=== PATIENT | female | born 1990 | race Caucasian/White ===

== ENCOUNTER 2017-03-05 13:53 | Inpatient (IN) | payer OTHER ==
[2017-03-05] MEDS: Lactated Ringer's 1,000 ML IV SCH ×2 (14:25→16:40)
[2017-03-05] MEDS ORDERED: Ondansetron HCl/PF 4 MG/2 ML Vial IVP PRN ×2 (15:03→17:20)
[2017-03-05] MEDS ORDERED: Carboprost 250 MCG/ML AMP IM PRN (15:03)
[2017-03-05] MEDS ORDERED: Lidocaine 1% (PF) 30 ML VIAL SC PRN (15:03)
[2017-03-05] MEDS ORDERED: Ibuprofen 800 MG TAB PO PRN (15:03)
[2017-03-05] MEDS ORDERED: Diphenoxylate HCl/Atropine Tablet PO PRN (15:03)
[2017-03-05] MEDS ORDERED: Acetaminophen 500 MG TAB PO PRN (15:03)
[2017-03-05] MEDS ORDERED: Promethazine HCl 25 MG/ML VIAL IM PRN ×2 (15:03→17:20)
[2017-03-05] MEDS ORDERED: Misoprostol 200 MCG TAB PR PRN (15:03)
[2017-03-05] MEDS ORDERED: HYDROcodone/Acetaminophen 5/325 mg Tablet PO PRN (15:03)
[2017-03-05 15:10] VITALS: BMI 29.6
[2017-03-05 15:18] LABS: Hematocrit 40.8 % (36.0-47.0); Mean Platelet Volume 11.7 fL (7.4-10.4); Red Blood Cell (RBC) Count 5.58 mill/uL (4.20-5.40); White Blood Cell (WBC) Count 7.1 thou/uL (4.8-10.8)
[2017-03-05] MEDS ORDERED: Fentanyl 4 mcg/Marc 0.1% Cadd 100 ML ONE (16:18)
[2017-03-05] MEDS ORDERED: Eucerin (Mineral Oil/Petrolatum,White) 30 gm Jar TOP PRN (17:20)
[2017-03-05] MEDS ORDERED: diphenhydrAMINE 50 MG/ML VIAL IVP PRN (17:20)
[2017-03-05] MEDS ORDERED: Lactated Ringer's 500 ML IV PRN (17:20)
[2017-03-05] MEDS ORDERED: ePHEDrine/0.9% NaCl/PF SYRINGE 50 mg/10 ml SLOW IVP PRN (17:20)
[2017-03-05] MEDS ORDERED: Naloxone HCl 0.4 mg/ml Vial IVP PRN ×2 (17:20)
[2017-03-05] MEDS ORDERED: Acetaminophen 325 MG TAB PO PRN (17:20)
[2017-03-05] MEDS ORDERED: Fentanyl 4mcg/Marcaine 0.1% Cassette 100 ML EPIDURAL SCH (17:30)
[2017-03-05] MEDS ORDERED: Communication Order-Pharmacy FS SCH (17:30)
[2017-03-05] MEDS: LR / Pitocin 40 units/1000 ml 1,000 ML IV PRN (22:32)
--- NOTE | 2017-03-05 23:04 | PDOC.LDHP ---
Labor and Delivery H&P Chief complaint: contractions HPI: 26yo at 38w2d with painful contractions, no LOF or VB. Good FM Current gestational age (weeks): 38 Due date: 03/17/17 Dating criteria: last menstrual period Grav: 1 Para: 0 Current complications: none Abnormal US findings: No Past Medical History: denies Current medications: pre- vitamins Previous surgical history: none Allergies/Adverse Reactions: Allergies Allergy/AdvReac Type Severity Reaction Status Date / Time No Known Allergies Allergy Verified 03/05/17 15:12 Social history: none - Physical Exam Vital signs reviewed and normal: yes General: NAD Heart: RRR Lungs: CTAB Abdomen: gravid Extremeties: no edema FHT: category 1 [place] contractions every: q2min - Vaginal Exam cm dilated: 10 Effacement: 100% Station: 2+ - OB Labs Blood type: O RH: positive Antibody Screen: negative HIV: negative RPR: negative HEPSAg: negative 1 hour GCT: positive 3 hour GTT: negative GBS: negative Rubella: immune - Assessment L&D Assessment: term patient in labor - Plan Plan: admit to L&D, labor augmentation if indicated, informed consent obtained, anesthesia consult for pain management
--- NOTE | 2017-03-05 23:05 | PDOC.OPDEL ---
OB Operative/Delivery Note Delivery Dr/Surgeon: Dion Assist: n/a Pre-Delivery Diagnosis: active labor Procedure/Post Delivery Dx: spontaneous vaginal delivery Weeks gestation: 38 Anesthesia: epidural - Findings A Sex: female Weight: 6 lb 6 oz - 1 min: 9 - 5 min: 9 - Additional Findings/Plan Placenta delivered: spontaneous Repaired Obstetrical Laceration: 2nd degree (repaired with 2-0 vicryl, hemostasis noted) Estimated blood loss: 500 Post delivery plan: routine recovery
[2017-03-06] MEDS: LR / Pitocin 40 units/1000 ml 1,000 ML IV PRN (01:06)
[2017-03-06] MEDS ORDERED: Preparation H Ointment 28 GM TUBE PR PRN (02:40)
[2017-03-06] MEDS ORDERED: Benzocaine/Menthol 20-0.5% 60 ML CAN TOP PRN (02:40)
[2017-03-06] MEDS ORDERED: Bisacodyl 10 MG SUPP PR PRN (02:40)
[2017-03-06] MEDS ORDERED: LR / Pitocin 40 units/1000 ml 1,000 ML IV SCH (02:40)
[2017-03-06] MEDS ORDERED: HYDROcodone/Acetaminophen 5/325 mg Tablet PO PRN ×2 (02:40)
[2017-03-06] MEDS ORDERED: diphenhydrAMINE 25 MG CAP PO PRN (02:40)
[2017-03-06] MEDS ORDERED: Ondansetron HCl/PF 4 MG/2 ML Vial IVP PRN (02:40)
[2017-03-06] MEDS ORDERED: Lanolin Ointment 7 GM TUBE TOP PRN (02:40)
[2017-03-06] MEDS ORDERED: Milk Of Magnesia 30 ML UDCUP PO PRN (02:40)
[2017-03-06] MEDS ORDERED: Adacel (T-DAP) 0.5 ML VIAL IM ONE (03:00)
[2017-03-06] MEDS: Ibuprofen 800 MG TAB PO SCH ×3 (05:41→21:30)
[2017-03-06 05:55] LABS: Hematocrit 32.4 % (36.0-47.0); Mean Platelet Volume 10.1 fL (7.4-10.4); Red Blood Cell (RBC) Count 4.49 mill/uL (4.20-5.40); White Blood Cell (WBC) Count 13.3 thou/uL (4.8-10.8)
[2017-03-06] MEDS ORDERED: Docusate (Surfak) 240 MG CAP PO SCH (09:00)
[2017-03-06] MEDS: Ferrous Sulfate 325 MG TAB PO SCH ×2 (09:27→18:25)
[2017-03-06] MEDS: Prenatal Vitamin 1 TAB PO SCH (09:29)
--- NOTE | 2017-03-06 16:23 | PDOC.PP ---
Post Progress Note Post Day #: 1 PO intake tolerated: yes Flatus: yes Ambulation: yes Vital Signs (12 hours) Temp Pulse Resp BP 03/06/17 12:00 98.4 F 83 18 122/60 03/06/17 08:00 99.5 F 97 20 Weight Weight 162 lb - Physical Examination General: NAD Cardiovascular: RRR Respiratory: non-labored breathing Abdominal: no distention, appropriately TTP Fundus firm & at: umb Skin: no rash Neurological: no gross focal deficits Psychiatric: normal affect Result Diagrams: 03/06/17 04:52 Additional Labs: Post Labs Blood Type O POSITIVE 03/05/17 14:45 Hep Bs Antigen Non-Reactive S/CO (NonReactive) 03/05/17 14:45 (1) Term delivered Code(s): O80 - ENCOUNTER FOR FULL-TERM UNCOMPLICATED DELIVERY Status: Acute - Assessment/Plan VSSAF Doing well bleeding appropriate Hgb ok post delivery Rh pos RImm LC pending Cont PP care, home tomorrow
[2017-03-06] MEDS ORDERED: Bupivacaine/Epinephrine 0.25% 30 ML VIAL ONE (21:50)
[2017-03-07] MEDS: Ibuprofen 800 MG TAB PO SCH ×2 (05:53→16:09)
[2017-03-07 07:53] VITALS: BP 106/67; TEMP 98.5
[2017-03-07] MEDS: Ferrous Sulfate 325 MG TAB PO SCH (08:51)
[2017-03-07] MEDS: Prenatal Vitamin 1 TAB PO SCH (08:51)
--- NOTE | 2017-03-07 11:00 | PDOC.PP ---
Post Progress Note Post Day #: 2 PO intake tolerated: yes Flatus: yes Ambulation: yes Vital Signs (12 hours) Temp Pulse Resp BP 03/07/17 08:00 98.5 F 77 16 03/07/17 07:52 98.5 F 77 16 106/67 Weight Weight 162 lb - Physical Examination General: NAD Cardiovascular: RRR Respiratory: non-labored breathing Abdominal: no distention, appropriately TTP Fundus firm & at: umb-2 Skin: no rash Psychiatric: normal affect Result Diagrams: 03/06/17 04:52 Additional Labs: Post Labs Blood Type O POSITIVE 03/05/17 14:45 Hep Bs Antigen Non-Reactive S/CO (NonReactive) 03/05/17 14:45 (1) Term delivered Code(s): O80 - ENCOUNTER FOR FULL-TERM UNCOMPLICATED DELIVERY Status: Acute - Assessment/Plan VSSAF No issues Pain controlled on ibuprofen Rh pos RImm DC home FU 6 wk
== END 2017-03-07 17:20 | disposition home or self-care (01) | DRG 775 ==
LOC: L&D/OP 13:53 → L&D 14:32 → UNDOADMIN 14:32 → 3SW 03-06 01:35
PROVIDERS: ADMIT Student in an Organized Health Care Education/Training Program; ATTEND Student in an Organized Health Care Education/Training Program
PROC: 10E0XZZ Delivery of Products of Conception, External Approach (ICD-10-PCS; principal; 2017-03-05)
PROC: 0KQM0ZZ Repair Perineum Muscle, Open Approach (ICD-10-PCS; 2017-03-05)
DX: O70.1 Second degree perineal laceration during delivery (principal); Z37.0 Single live birth; Z3A.38 38 weeks gestation of pregnancy
CPT/HCPCS: 36415; 51702; 76815; 85027; 86780; 87340; 99283; J2001